=== PATIENT | male | born 1995 | race Two or more races ===

== ENCOUNTER 2018-05-24 20:37 | Emergency (ER) | payer SELFPAY ==
[~2018-05-24] VITALS: Ht 172.7 cm; Wt 79.4 kg
--- NOTE | 2018-05-24 21:28 | PHYS DOC ---
Past Medical History Past Medical History: No Pertinent History (XI MESA APRN) Past Surgical History: No Surgical History (XI MESA APRN) Alcohol Use: None Drug Use: None (XI MESA APRN) Adult General Chief Complaint Chief Complaint: CHEST PAIN HPI HPI Patient is a 22 year old male with history of anxiety who presents to the ED today complaining of one out of 10 intermittent pressure-like left-sided chest pain that has been going on since high school. Patient states he feels the chest pain is worse when he lays on his left side. Patient denies any new changes to his pain in fact he states his pain feels better right now in the ED , patient denies anything specifically relieving the pain. He states usually his pain tends to be worse when he is depressed or anxious. He states currently his mother is worried about him due to the chest pain and this is making him very anxious and worried too they both mother and patient stated crying. Both denies being abused, suicidal or homicidal ideations. Patient denies being on any medication for depression/anxiety. Denies any family history of people dying at the age or 50 below from cardiac issues. (XI MESA APRN) Review of Systems Review of Systems Constitutional: Denies fever or chills [] Eyes: Denies change in visual acuity, redness, or eye pain [] HENT: Denies nasal congestion or sore throat [] Respiratory: Denies cough or shortness of breath [] Cardiovascular: reports chest pain GI: Denies abdominal pain, nausea, vomiting, bloody stools or diarrhea [] : Denies dysuria or hematuria [] Musculoskeletal: Denies back pain or joint pain [] Integument: Denies rash or skin lesions [] Neurologic: Denies headache, focal weakness or sensory changes [] All other systems were reviewed and found to be within normal limits, except as documented in this note. (XI MESA APRN) Current Medications Current Medications Current Medications Medications (Trade) Dose Ordered Sig/Jessica Start Time Stop Time Status Last Admin Dose Admin Aspirin ([place] Aspirin) 325 mg 1X ONCE 05/24/18 22:00 05/24/18 22:01 DC 05/24/18 21:46 325 MG (ARCHIE GAGE DO) Allergies Allergies Allergies Coded Allergies Type Severity Reaction Last Updated Verified Penicillins Allergy Intermediate 05/24/18 Yes (ARCHIE GAGE DO) Physical Exam Physical Exam Constitutional: Well developed, well nourished, no acute distress, non-toxic appearance. [] HENT: Normocephalic, atraumatic, bilateral external ears normal, oropharynx moist, no oral exudates, nose normal. [] Eyes: PERRLA, EOMI, conjunctiva normal, no discharge. [] Neck: Normal range of motion, no tenderness, supple, no stridor. [] Cardiovascular:Heart rate regular rhythm, no murmur [] Lungs & Thorax: Bilateral breath sounds clear to auscultation [] Abdomen: Bowel sounds normal, soft, no tenderness, no masses, no pulsatile masses. [] Skin: Warm, dry, no erythema, no rash. [] Back: No tenderness, no CVA tenderness. [] Extremities: No tenderness, no cyanosis, no clubbing, ROM intact, no edema. [] Neurologic: Alert and oriented X 3, normal motor function, normal sensory function, no focal deficits noted. [] Psychologic: depressed mood. (XI MESA APRN) Current Patient Data Vital Signs Vital Signs Date Time Temp Pulse Resp B/P (MAP) Pulse Ox O2 Delivery O2 Flow Rate FiO2 05/24/18 23:05 96 18 121/71 (88) Room Air 05/24/18 20:45 98.5 96 98.5 (ARCHIE GAGE DO) EKG EKG [address] Gage sinus tachycardia HR 105 no STEMI[] (XI MESA APRN) Radiology/Procedures Radiology/Procedures [] (XI MESA APRN) Radiology/Procedures PROCEDURE: CHEST PA & LATERAL PA and lateral views of the chest. Comparison: Acute abdomen series dated 06/20/2010. Indication: Chest pain Findings: Soft tissues of the upper extremities partially obscures lateral view of the anterior chest. Normal lung volume. No focal airspace disease. Normal pulmonary vasculature. No pleural effusion. No pneumothorax. The cardiomediastinal silhouette is normal in appearance. The great vessels are normal. No acute osseous abnormality. Impression: 1. No acute cardiopulmonary process. Electronically signed by: Kalen John MD (05/24/2018 10:11 PM) [facility] (ARCHIE GAGE DO) Course & Med Decision Making Course & Med Decision Making Pertinent Labs and Imaging studies reviewed. (See chart for details) This is a 22-year-old male patient presenting to the ED today with chest pain left-sided since he was 17 in high school. Vitals on arrival to the ED temperature 98.5 heart rate 85 respiration 14 on room air O2 sats 96-100% on room air blood pressure 137/78. Patient appears to have history of anxiety and likely some depression but has not been treated, his symptoms seems to occur mostly when he is depressed or anxious at some point both patient and mother were crying in the Ed as we talked. I provided patient and mother resources to follow up with [facility]. Provided return precautions and discharged in stable condition. OTC medications recommended. Doctor's list also provided. (XI MESA APRN) Dragon Disclaimer Dragon Disclaimer This electronic medical record was generated, in whole or in part, using a voice recognition dictation system. (XI MESA APRN) Departure Departure Impression: Primary Impression: Chest pain Additional Impressions: Anxiety Depression Disposition: 01 HOME, SELF-CARE Condition: STABLE Patient Instructions: Anxiety and Panic Attacks, Chest Pain (Nonspecific), Depression, Adult Additional Instructions: You were evaluated in the emergency room. Consider taking Tylenol or Motrin for for your pain, come back to the ED at any point symptoms worsen. You appeared to have some anxiety and depression going on. We highly recommend you follow-up with [facility] for this. Also establish care with a primary care doctor and follow-up. Attending Signature Attending Signature I have reviewed the PA/EMPLOYMENT SPECIALIST's note and plan of care. I was available for consultation as needed during the patient's visit in the emergency department. I agree with the clinical impression, plan, and disposition. (ARCHIE GAGE DO) Problem Qualifiers Primary Impression: Chest pain Chest pain type: unspecified Qualified Codes: R07.9 - Chest pain, unspecified Additional Impressions: Depression Depression Type: unspecified Qualified Codes: F32.9 - Major depressive disorder, single episode, unspecified XI MESA APRN May 24, 2018 21:28 ARCHIE GAGE DO May 25, 2018 04:37
[2018-05-24] MEDS ORDERED: ASPIRIN 325 MG TABLET PO ONE (22:00)
--- NOTE | 2018-05-24 22:14 | RAD ---
PA and lateral views of the chest. Comparison: Acute abdomen series dated 06/20/2010. Indication: Chest pain Findings: Soft tissues of the upper extremities partially obscures lateral view of the anterior chest. Normal lung volume. No focal airspace disease. Normal pulmonary vasculature. No pleural effusion. No pneumothorax. The cardiomediastinal silhouette is normal in appearance. The great vessels are normal. No acute osseous abnormality. Impression: 1. No acute cardiopulmonary process. Electronically signed by: Kalen John MD (05/24/2018 10:11 PM) [facility] [place]
[2018-05-24 23:05] VITALS: BP 121/71
--- NOTE | 2018-05-26 08:19 | EKG ---
[facility] [address] [place] [address] Test Date: 2018-05-24 Test Time: 20:49:31 Pat Name: MARCUS SAVAGE Department: Room: Gender: M Music Manager: : 1995 Requested By: XI MESA Order Number: [id number] Reading MD: Hardy Dang MD Measurements Intervals [place] Rate: 105 P: 46 MI: 168 QRS: 39 QRSD: 86 T: 34 QT: 334 QTc: 445 Interpretive Statements SINUS TACHYCARDIA NON-SPECIFIC ST/T CHANGES Electronically Signed On 05-27-2018 7:45:35 PROFESSOR OF RELIGION by Hardy Dang MD
== END 2018-05-24 23:05 | disposition home or self-care (01) ==
LOC: ER 20:37
DX: R07.89 Other chest pain (principal); F41.8 Other specified anxiety disorders; Z88.0 Allergy status to penicillin
CPT/HCPCS: 71046; 93005; 99283